=== PATIENT | female | born 1980 | race Caucasian/White ===

== ENCOUNTER 2019-11-20 13:05 | Emergency (ER) | payer SELFPAY ==
[2019-11-20] VITALS (11 sets, daily range): BP systolic 129–239; BP diastolic 87–197; PULSE 74–136; RESP 16–18; TEMP 37.1; O2SAT 95–98; BMI 41.0
--- NOTE | 2019-11-20 13:23 | XRR_ITS ---
PROCEDURE INFORMATION: Exam: XR Chest, 1 View Exam date and time: 11/20/2019 2:17 PM Age: 38 years old Clinical indication: Cough TECHNIQUE: Imaging protocol: XR of the chest Views: 1 view. COMPARISON: CR Chest 1 [place] [id number] 03/09/2014 10:26 PM FINDINGS: Lungs: Unremarkable. No consolidation. Pleural space: Unremarkable. No pleural effusion. No pneumothorax. Heart/Mediastinum: Unremarkable. No cardiomegaly. Bones/joints: Unremarkable. XR/XR chest 1V portable [id number] IMPRESSION: No acute radiographic findings.
--- NOTE | 2019-11-20 13:23 | XRR_ITS ---
PROCEDURE INFORMATION: Exam: XR Abdomen, 1 View Exam date and time: 11/20/2019 2:25 PM Age: 38 years old Clinical indication: Nausea and vomiting and other: Diarrhea TECHNIQUE: Imaging protocol: XR of the abdomen. Views: Frontal supine view of the abdomen. 1 View. COMPARISON: No relevant prior studies available. FINDINGS: Gastrointestinal tract: Normal. No bowel dilation. Organs: Cholecystectomy clips overlying the right upper quadrant. Bones/joints: Unremarkable. XR/XR KUB portable [id number] IMPRESSION: No acute radiographic findings.
--- NOTE | 2019-11-20 13:24 | W.ED.NAVMDI ---
Documented by User: ROSENDO Campo 11/20/19 16:22 HPI - Nausea/Vomiting/Diarrhea General: Chief complaint: Nausea/Vomiting/Diarrhea Stated complaint: n/v/d cough Time Seen by Provider: 11/20/19 13:15 History of Present Illness: HPI Narrative: Patient started with diarrhea nausea on has had a little bit of vomiting has not really improved the diarrhea is watery denies any fever has had some chills. Has slight cough but she says she normally has it because she has a history of asthma which she uses as needed albuterol inhaler her asthma not been flaring up she states. Denies any abdominal pain is able to eat and keep most foods down denies any other problems denies any exposure to covid or other ill people MD elicited complaint: nausea, vomiting and diarrhea Onset (ago): day(s) Description of diarrhea: watery and semi-solid Associated nausea: Yes Associated abdominal pain: No Location of pain: None Associated symtoms: Reports nausea; Denies anxiety, change in vision, chest pain or headache(s) Review of Systems Const: Denies: fever(s), chills or body aches Eyes: Denies: change in vision or blurry vision ENMT: Denies: throat pain or nasal congestion Card: Denies: chest pain or dyspnea on exertion Resp: Denies: dyspnea, productive cough or non-productive cough GI: Reports: nausea Musc: Denies: extremity pain Skin/Breast: Denies: rash Neuro: Denies: headache(s) Psych: Denies: anxiety or depression Deni/Lymph: Denies: easy bruising PFSH ED PFSH: Social History Smoking and tobacco status: never smoked Physical Exam Const: COMMON NORMALS: no acute distress, average body habitus and patient oriented x3 HENMT: COMMON NORMALS: normocephalic HEAD & SCALP: normal to inspection and normocephalic FACE & SINUS: normal facial exam Eye: COMMON NORMALS: conjunctivae normal GENERAL EYE: appearance normal, both eyes and all related structures CONJUNCTIVA: Yes conjunctivae normal Neck/C-Spine: COMMON NORMALS: no JVD Chest: COMMONS NORMALS: normal inspection of the chest Resp: COMMON NORMALS: normal respiratory effort and clear to auscultation bilaterally AUSCULTATION: clear to auscultation bilaterally Cardio: COMMON NORMALS: no JVD, regular rate and regular rhythm RATE: regular rate RHYTHM: regular rhythm GI: COMMON NORMALS: Normal to inspection, nondistended, normoactive bowel sounds present Extremity: COMMON NORMALS: normal to inspection and full ROM Neuro: COMMON NORMALS: patient oriented x3 Course Vital Signs: Vital signs: Vital Signs Temperature 98.8 F 11/20/19 13:07 Pulse Rate 78 11/20/19 18:00 Respiratory Rate 17 11/20/19 18:00 Blood Pressure 160/114 11/20/19 18:00 Pulse Oximetry 98 11/20/19 16:07 MDM - Nausea/Vomiting/Diarrhea MDM Narrative: Medical decision making narrative: When patient is being prepared to be discharged noticed that her blood pressure had increased markedly after discussion with the patient found out that both parents both grandparents and treated with hypertension early age she said last time she had a blood pressure check was prior about 17 years ago when she had surgery and she thought she probably had a high blood pressure but never has got it checked out discussed with Dr. Gomez Lab Data: Labs: Lab Results 11/20/19 11/20/19 11/20/19 Range/Units 13:17 13:17 13:36 WBC 9.4 (4.0-10.0) 10^3/ uL RBC 6.32 H (4.1-5.3) 10^6/u L Hgb 12.7 (11.5-15.3) g/dL Hct 43.3 (37.0-47.0) % MCV 68.5 L (81-99) fL MCH 20.1 L (28.0-34.0) pg MCHC 29.3 L (30.0-36.0) g/dL RDW 18.8 H (12.1-15.1) % Plt Count 368 (130-400) 10^3/c mm MPV 9.4 (7.4-10.4) fL Neut % (Auto) 55.9 % Lymph % (Auto) 33.0 % [place] % (Auto) 7.2 % Eos % (Auto) 2.8 % Baso % (Auto) 0.9 % Neut # (Auto) 5.2 (1.8-7.7) 10^3/u L Lymph # (Auto) 3.1 (0.8-4.8) 10^3/u L [place] # (Auto) 0.7 (0.2-0.9) 10^3/u L Eos # (Auto) 0.3 (0.0-0.8) 10^3/u L Baso # (Auto) 0.1 (0.0-0.1) 10^3/u L Nucleated RBC % (a uto) 0 % Nucleated RBCs # 0.0 /100WBC Sodium 139 (136-145) mmol/L Potassium 3.5 (3.5-5.1) mmol/L Chloride 100 (98-107) mmol/L Carbon Dioxide 26 (22-29) mmol/L Anion Gap 16.5 (5-19) BUN 7 (6-20) mg/dL Creatinine 0.7 (0.5-0.9) mg/dL GFR Calculation 92.7 (90-130) mL/min Glucose 146 H (65-115) mg/dL Calculated Osmolal ity 286 (285-295) mOsm/k g Calcium 9.5 (8.5-10.5) mg/dL Total Bilirubin 0.4 (0.15-1.2) mg/dL AST 40 H (0-32) U/L ALT 38 H (0-33) U/L Alkaline Phosphata se 99 (35-105) IU/L Total Protein 8.1 (6.6-8.7) g/dL Albumin 4.8 (3.5-5.2) g/dL Globulin 3.3 (1.3-4.6) g/dL Lipase 34 (13-60) U/L Urine Color Yellow (Yellow) Urine Appearance Clear (CLEAR) Urine pH 6 (5-7) Ur Specific Gravit y 1.030 (1.005-1.030) Urine Protein Neg (Negative) Urine Glucose (UA) Trace H (Normal) Urine Ketones Negative (Negative) Urine Blood Neg (Negative) Urine Nitrate Positive H (Negative) Urine Bilirubin 1+ H (NEGATIVE) Urine Urobilinogen Norm (Negative) mg/dL Ur Leukocyte Rebecca ase Trace H (Negative) Urine RBC None (0-2) /hpf Urine WBC 0-4 H (0-5) /hpf Ur Squamous Epith Cells 0-4 H (0-5) Urine Bacteria 2+ H (NONE) Hyaline Casts 5-10 H Urine Mucus 2+ EKG Data^: EKG 1: EKG interpretation date: 11/20/19 EKG interpretation time: 16:20 Interpretation: Ventricular rate 79 bpm sinus rhythm left ventricular hypertrophy CT interval 184 ms QRS durations 87 ms Discharge Plan Discharge Patient Disposition: Home, Self-Care Clinical Impression: UTI (urinary tract infection) Qualifiers: Urinary tract infection type: acute cystitis Hematuria presence: without hematuria Qualified Code(s): N30.00 - Acute cystitis without hematuria Hypertension Qualifiers: Hypertension type: essential hypertension Qualified Code(s): I10 - Essential (primary) hypertension Condition: Stable Prescriptions: New Macrobid 100 mg capsule 100 mg PO BID 7 Days Qty: 14 RF: 0 Zofran 4 mg tablet 4 mg PO Q8H PRN (Reason: nausea and vomiting) 2 Days Qty: 10 RF: 0 lisinopril 10 mg tablet 10 mg PO DAILY Qty: 14 RF: 0 No Action Pepto-Bismol 262 mg/15 mL Suspension See Rx Instructions .ROUTE .COMPLEX RF: 0 ProAir HFA 90 mcg/actuation Hfa Aerosol Inhaler 2 puff INHALATION Q4H PRN (Reason: Shortness Of Breath) RF: 0 Imodium A-D 1 tab PO PRN RF: 0 Discharge Orders: Discharge Order (Routine); Ordered 11/20/19 Ordered By: Vikas Paz Discharge Diet: Advance as tolerated Discharge Activity: Increase activity as tolerated Patient Instructions: Urinary Tract Infection in Women (ED) Activity Restrictions/Additional Instructions: Follow-up with medical provider as directed. Take medications as prescribed. Return to the ER or your medical provider if condition worsens. Please read and understand discharge instructions. If any questions ask please. Drink plenty of fluids retest urine in 1 week at primary care provider Sign Out Sign Out Data: Patient Sign Out occurred on 11/20/19 at 17:05. Patient's care was discussed, and care was transferred from to DNONA Franco. Coding Level of Care Code ED Beauty Sales Advisor for Chg Fwd Exam Comprehensive Documented by User: DONNA Franco 11/20/19 18:35 HPI - Nausea/Vomiting/Diarrhea General: Chief complaint: Nausea/Vomiting/Diarrhea Stated complaint: n/v/d cough Time Seen by Provider: 11/20/19 13:15 PFS ED PFSH: Social History Smoking and tobacco status: never smoked Course Vital Signs: Vital signs: Vital Signs Temperature 98.8 F 11/20/19 13:07 Pulse Rate 78 11/20/19 18:00 Respiratory Rate 17 11/20/19 18:00 Blood Pressure 160/114 11/20/19 18:00 Pulse Oximetry 98 11/20/19 16:07 MDM - Nausea/Vomiting/Diarrhea MDM Narrative: Medical decision making narrative: Care was assumed from ROSENDO Campo. He had plan for disposition for the patient to treat her hypertension as well as her UTI. He had given additional medications for her BP prior to shift end. I continued to monitor pts BP. According to previous history she has a longstanding history of untreated hypertension. She is completely asymptomatic related to her BP readings today. After medications BP is down to 160/114. Again given the fact that she is asymptomatic I think patient is stable to go home. Previous provider has placed her on lisinopril. It is imperative that she follow-up with primary care so they can adjust this medication as needed. She needs to keep a blood pressure log to discuss with them. Lab Data: Labs: Lab Results 11/20/19 11/20/19 11/20/19 Range/Units 13:17 13:17 13:36 WBC 9.4 (4.0-10.0) 10^3/ uL RBC 6.32 H (4.1-5.3) 10^6/u L Hgb 12.7 (11.5-15.3) g/dL Hct 43.3 (37.0-47.0) % MCV 68.5 L (81-99) fL MCH 20.1 L (28.0-34.0) pg MCHC 29.3 L (30.0-36.0) g/dL RDW 18.8 H (12.1-15.1) % Plt Count 368 (130-400) 10^3/c mm MPV 9.4 (7.4-10.4) fL Neut % (Auto) 55.9 % Lymph % (Auto) 33.0 % [place] % (Auto) 7.2 % Eos % (Auto) 2.8 % Baso % (Auto) 0.9 % Neut # (Auto) 5.2 (1.8-7.7) 10^3/u L Lymph # (Auto) 3.1 (0.8-4.8) 10^3/u L [place] # (Auto) 0.7 (0.2-0.9) 10^3/u L Eos # (Auto) 0.3 (0.0-0.8) 10^3/u L Baso # (Auto) 0.1 (0.0-0.1) 10^3/u L Nucleated RBC % (a uto) 0 % Nucleated RBCs # 0.0 /100WBC Sodium 139 (136-145) mmol/L Potassium 3.5 (3.5-5.1) mmol/L Chloride 100 (98-107) mmol/L Carbon Dioxide 26 (22-29) mmol/L Anion Gap 16.5 (5-19) BUN 7 (6-20) mg/dL Creatinine 0.7 (0.5-0.9) mg/dL GFR Calculation 92.7 (90-130) mL/min Glucose 146 H (65-115) mg/dL Calculated Osmolal ity 286 (285-295) mOsm/k g Calcium 9.5 (8.5-10.5) mg/dL Total Bilirubin 0.4 (0.15-1.2) mg/dL AST 40 H (0-32) U/L ALT 38 H (0-33) U/L Alkaline Phosphata se 99 (35-105) IU/L Total Protein 8.1 (6.6-8.7) g/dL Albumin 4.8 (3.5-5.2) g/dL Globulin 3.3 (1.3-4.6) g/dL Lipase 34 (13-60) U/L Urine Color Yellow (Yellow) Urine Appearance Clear (CLEAR) Urine pH 6 (5-7) Ur Specific Gravit y 1.030 (1.005-1.030) Urine Protein Neg (Negative) Urine Glucose (UA) Trace H (Normal) Urine Ketones Negative (Negative) Urine Blood Neg (Negative) Urine Nitrate Positive H (Negative) Urine Bilirubin 1+ H (NEGATIVE) Urine Urobilinogen Norm (Negative) mg/dL Ur Leukocyte Rebecca ase Trace H (Negative) Urine RBC None (0-2) /hpf Urine WBC 0-4 H (0-5) /hpf Ur Squamous Epith Cells 0-4 H (0-5) Urine Bacteria 2+ H (NONE) Hyaline Casts 5-10 H Urine Mucus 2+ Discharge Plan Discharge Patient Disposition: Home, Self-Care Clinical Impression: UTI (urinary tract infection) Qualifiers: Urinary tract infection type: acute cystitis Hematuria presence: without hematuria Qualified Code(s): N30.00 - Acute cystitis without hematuria Hypertension Qualifiers: Hypertension type: essential hypertension Qualified Code(s): I10 - Essential (primary) hypertension Condition: Stable Prescriptions: New Macrobid 100 mg capsule 100 mg PO BID 7 Days Qty: 14 RF: 0 Zofran 4 mg tablet 4 mg PO Q8H PRN (Reason: nausea and vomiting) 2 Days Qty: 10 RF: 0 lisinopril 10 mg tablet 10 mg PO DAILY Qty: 14 RF: 0 No Action Pepto-Bismol 262 mg/15 mL Suspension See Rx Instructions .ROUTE .COMPLEX RF: 0 ProAir HFA 90 mcg/actuation Hfa Aerosol Inhaler 2 puff INHALATION Q4H PRN (Reason: Shortness Of Breath) RF: 0 Imodium A-D 1 tab PO PRN RF: 0 Discharge Orders: Discharge Order (Routine); Ordered 11/20/19 Ordered By: Vikas Paz Discharge Diet: Advance as tolerated Discharge Activity: Increase activity as tolerated Patient Instructions: Urinary Tract Infection in Women (ED) Activity Restrictions/Additional Instructions: Follow-up with medical provider as directed. Take medications as prescribed. Return to the ER or your medical provider if condition worsens. Please read and understand discharge instructions. If any questions ask please. Drink plenty of fluids retest urine in 1 week at primary care provider Sign Out Sign Out Data: Patient Sign Out occurred on 11/20/19 at 17:05. Patient's care was discussed, and care was transferred from to DONNA Franco. Coding Level of Care Code ED Beauty Sales Advisor for Chg Fwd Exam Comprehensive
[2019-11-20 13:32] LABS: Basophils # 0.1 10^3/uL (0.0-0.1); Basophils % 0.9 %; Eosinophils # 0.3 10^3/uL (0.0-0.8); Eosinophils % 2.8 %; Hematocrit 43.3 % (37.0-47.0); Hemoglobin 12.7 g/dL (11.5-15.3); Lymphocytes # 3.1 10^3/uL (0.8-4.8); Mean Corpuscular HGB Conc 29.3 g/dL (30.0-36.0); Mean Corpuscular Hemoglobin 20.1 pg (28.0-34.0); Mean Corpuscular Volume 68.5 fL (81-99); Mean Platelet Volume 9.4 fL (7.4-10.4); Monocytes # 0.7 10^3/uL (0.2-0.9); Monocytes % 7.2 %; Neutrophils # 5.2 10^3/uL (1.8-7.7); Neutrophils % 55.9 %; Nucleated Red Blood Cells % 0 %; Platelet Count 368 10^3/cmm (130-400); Red Blood Count 6.32 10^6/uL (4.1-5.3); Red Cell Distribution Width 18.8 % (12.1-15.1); White Blood Count 9.4 10^3/uL (4.0-10.0)
[2019-11-20 13:42] LABS: Alanine Aminotransferase 38 U/L (0-33); Albumin Level 4.8 g/dL (3.5-5.2); Alkaline Phosphatase 99 IU/L (35-105); Anion Gap 16.5 (5-19); Aspartate Amino Transferase 40 U/L (0-32); Blood Urea Nitrogen 7 mg/dL (6-20); Calcium 9.5 mg/dL (8.5-10.5); Carbon Dioxide 26 mmol/L (22-29); Chloride 100 mmol/L (98-107); Globulin 3.3 g/dL (1.3-4.6); Glomerular Filtration Rate 92.7 mL/min (90-130); Glucose 146 mg/dL (65-115); Lipase 34 U/L (13-60); Osmolality Calculated 286 mOsm/kg (285-295); Potassium 3.5 mmol/L (3.5-5.1); Sodium 139 mmol/L (136-145); Total Bilirubin 0.4 mg/dL (0.15-1.2); Total Protein 8.1 g/dL (6.6-8.7)
[2019-11-20] MEDS: sodium chloride 0.9% 1,000 ML 999 ML IV (13:43)
[2019-11-20 14:03] LABS: Urine Appearance Clear (CLEAR); Urine Color Yellow (Yellow); pH Urine 6 (5-7)
[2019-11-20 14:05] LABS: Add Urine Microscopic? YES; Bilirubin Urine 1+ (NEGATIVE); Blood Urine Neg (Negative); Glucose Urine UA Trace (Normal); Ketones Urine Negative (Negative); Leukocyte Esterase Urine Trace (Negative); Nitrate Urine Positive (Negative); Protein Urine Neg (Negative); Urobilinogen Urine Norm (Negative)
[2019-11-20 14:23] LABS: Add Urine Culture? Yes; Bacteria Urine 2+; Mucus Urine 2+; Squamous Epithelial Cell Urine 0-4 (0-5); WBC Urine 0-4 /hpf (0-5)
[2019-11-20] MEDS: cloNIDine 0.1 mg Tablet PO ×2 (15:19→17:47)
--- NOTE | 2019-11-20 15:55 | ECG_ITS ---
Measurements Intervals [place] Rate: 79 P: 54 WI: 184 QRS: 9 QRSD: 87 T: 127 QT: 389 QTc: 447 SINUS RHYTHM LEFT VENTRICULAR HYPERTROPHY AND ST-T CHANGE No previous ECG available for comparison Electronically Signed On 11-21-2019 19:55:27 CDT by Angelita Zuniga M.D. [email or web address]
[2019-11-20] MEDS: metoprolol tartrate 1 mg/1 mL SDV 5 mL 5 MG IV (16:06)
[2019-11-20] MEDS: hyDRALAzine 20 mg/mL INJ 1 mL 10 MG IVP (17:16)
== END 2019-11-20 19:10 | disposition home or self-care (01) ==
PROVIDERS: Nurse Practitioner Family; Emergency Provider Physician Assistant
DX: N30.00 Acute cystitis without hematuria (principal); I10 Essential (primary) hypertension
CPT/HCPCS: 12345; 36415; 71045; 74018; 80053; 81001; 83690; 85025; 87086; 93005; 96361; 96374; 96375; 99283; J0360; J3490; J7030

== ENCOUNTER 2021-12-09 11:03 | Outpatient (CLI) | payer BC, SELFPAY ==
--- NOTE | 2021-12-09 11:14 | XRR_ITS ---
PROCEDURE INFORMATION: Exam: XR Right Foot Exam date and time: 12/09/2021 11:21 AM Age: 40 years old Clinical indication: Right; Patient HX: RT heel pain for 10 months, knot on heel; Additional info: R heel pain TECHNIQUE: Imaging protocol: XR Right foot. Views: 3 or more views. COMPARISON: No relevant prior studies available. FINDINGS: Bones/joints: Negative for acute bony abnormality. A bone spurs present on the posterior aspect of the calcaneus. Soft tissues: Unremarkable XR/XR foot RT min 3V* [id number] IMPRESSION: 1. No acute bone abnormality. 2. Bone spur posterior calcaneus. 3. Unremarkable soft tissues
== END 2021-12-09 11:04 | disposition home or self-care (01) ==
LOC: RAD 11:05
PROVIDERS: Visit Provider Nurse Practitioner Family
DX: M79.671 Pain in right foot (principal); M77.31 Calcaneal spur, right foot
CPT/HCPCS: 73630

== ENCOUNTER → 2022-01-22 08:25 | Outpatient (BNVA) | payer BC, SELFPAY | PROVIDERS: Visit Provider Podiatrist Foot & Ankle Surgery | DX: M79.671 Pain in right foot (principal); M92.61 Juvenile osteochondrosis of tarsus, right ankle | CPT/HCPCS: 99203 ==

== ENCOUNTER 2024-04-12 10:37 | Outpatient (CLI) | payer OTHER, SELFPAY ==
--- NOTE | 2024-04-12 10:41 | MM_ITS ---
WS: [id number] BILATERAL 3D TOMOSYNTHESIS DIGITAL SCREENING MAMMOGRAPHY WITH CAD CLINICAL INFORMATION: SCREENING HISTORY: Screening mammogram. No current complaints. COMPARISON: Baseline TECHNIQUE: Bilateral CC and MLO views. FINDINGS: Scattered fibroglandular densities bilaterally. Small asymmetric density anterior RIGHT breast near t he 12 o'clock position. Recommend further evaluation with a RIGHT breast diagnostic mammography and u ltrasound if persistent. A few tiny incidental punctate calcifications. Unremarkable LEFT breast. MM/MM scr tomosynthesis [id number] IMPRESSION: DENSITY: There are scattered areas of fibroglandular density. BI-RADS: 0 - Incomplete: Need additional imaging evaluation. FOLLOW UP: Need Additional Imaging Recommend further evaluation with a RIGHT breast diagnostic mammography and ult rasound if persistent
== END 2024-04-12 10:38 | disposition home or self-care (01) ==
LOC: RAD 10:38
PROVIDERS: Visit Provider Nurse Practitioner Family
DX: Z12.31 Encounter for screening mammogram for malignant neoplasm of breast (principal)
CPT/HCPCS: 77063; 77067

== ENCOUNTER 2024-05-12 10:31 | Outpatient (CLI) | payer OTHER, SELFPAY ==
--- NOTE | 2024-05-12 10:35 | MM_ITS ---
WS: [id number] RIGHT 3D TOMOSYNTHESIS DIGITAL MAMMOGRAPHY WITH CAD CLINICAL INFORMATION: ABNORMAL MAMMOGRAM HISTORY: Additional views COMPARISON: 04/12/2024 TECHNIQUE: 3 views of the right breast were obtained. FINDINGS: Scattered fibroglandular densities of the right breast. Again seen is the small asymmetric density an terior RIGHT breast near the 12 o'clock position. Ultrasound is pending. ULTRASOUND BREAST RIGHT TECHNIQUE: Ultrasound right breast focused area of concern. CLINICAL INFORMATION: ABNORMAL MAMMOGRAM FINDINGS: Ultrasound performed from the 11 to 1 o'clock position anteriorly Ultrasound RIGHT breast anteriorly near the 12 o'clock position. Tiny hypoechoic likely complex cyst at the 1 o'clock position 2 cm from the nipple measuring 5 x 3 x 3 mm with through transmission. No o ther suspicious findings. No suspicious lesions to target for biopsy. Recommend return to annual scre ening mammography. MM/MM diag RT tomosynthesis [id number] IMPRESSION: DENSITY: There are scattered areas of fibroglandular density. BI-RADS: 2 - Benign. FOLLOW UP: 1 Year Follow-up Recommend return to annual screening mammography.
== END 2024-05-12 10:32 | disposition home or self-care (01) ==
LOC: RAD 10:32
PROVIDERS: PCP Nurse Practitioner Family; Visit Provider Nurse Practitioner Family
DX: N60.01 Solitary cyst of right breast (principal); R92.323 Mammographic fibroglandular density, bilateral breasts
CPT/HCPCS: 76642; 77061; G0279